=== PATIENT | male | born 1945 | race African-American/Black ===

== ENCOUNTER 2020-07-18 11:53 | Emergency (ER) | payer OTHER ==
[~2020-07-18] VITALS: Ht 182.9 cm; Wt 77.0 kg
[2020-07-18 12:37] LABS: BASOPHILS % 0.9 % (0.0-2.0); EOSINOPHILS % 2.9 % (0.0-5.0); HEMATOCRIT. 41.4 % (42.0-52.0); HEMOGLOBIN. 13.1 g/dL (14.0-18.0); LYMPHOCYTES % 35.2 % (20.0-50.0); MEAN CORPUSCULAR HEMOGLOBIN 24.3 pg (28.0-32.0); MEAN CORPUSCULAR VOLUME 76.6 fL (80.0-94.0); MEAN PLATELET VOLUME 9.1 fl (7.4-10.4); MONOCYTES % 10.8 % (2.0-8.0); NEUTROPHILS % 50.2 % (40.0-76.0); PLATELET 219 x1000/uL (130-400); RED CELL DISTRIBUTION WIDTH 14.5 % (11.6-14.6)
[2020-07-18 12:39] LABS: CHLORIDE 108 mEq/L (98-107)
[2020-07-18 12:41] LABS: PROTHROMBIN TIME 10.9 sec (9.6-11.0)
[2020-07-18 12:50] LABS: CREATINE KINASE 338 IU/L (39-308)
[2020-07-18 13:34] VITALS: BP 122/59
== END 2020-07-18 13:51 | disposition home or self-care (01) ==
LOC: ER 12:10
DX: R94.31 Abnormal electrocardiogram [ECG] [EKG] (principal)
CPT/HCPCS: 36415; 71045; 80053; 82550; 83880; 84484; 85025; 93005; 99285